=== PATIENT | male | born 1995 | race American Indian/Alaskan Native ===

== ENCOUNTER 2017-02-10 18:24 | Emergency (ER) | payer OTHER ==
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
[2017-02-11] MEDS: MOTRIN PO ONE (02:27)
[2017-02-11 02:53] VITALS: BP 149/97
== END 2017-02-11 02:30 | disposition home or self-care (01) ==
LOC: ED 18:24
DX: M54.2 Cervicalgia (principal); Z87.891 Personal history of nicotine dependence; V49.49XA Driver injured in collision with other motor vehicles in traffic accident, initial encounter; Y93.9 Activity, unspecified; Y92.9 Unspecified place or not applicable; Y99.9 Unspecified external cause status
CPT/HCPCS: 99282

== ENCOUNTER 2018-05-11 13:05 | Emergency (ER) | payer OTHER ==
--- NOTE | 2018-05-11 14:19 | Emergency Department Report ---
ED ENT HPI - General Chief complaint: Sore Throat Stated complaint: TOOTH/THROAT SWOLLEN Time Seen by Provider: 05/11/18 14:15 Source: patient Mode of arrival: Ambulatory Limitations: No Limitations - History of Present Illness MD complaint: tooth pain -: Last night Severity: moderate Quality: sharp Context- Dental: history of dental caries - Related Data Previous Rx's Medication Instructions Recorded Last Taken Type Naproxen [Naprosyn] 500 mg PO BID #30 tablet 02/11/17 Unknown Rx methOCARBAMOL [Robaxin TAB] 500 mg PO BID #30 tab 02/11/17 Unknown Rx Allergies Allergy/AdvReac Type Severity Reaction Status Date / Time No Known Allergies Allergy Unverified 02/10/17 20:36 ED Dental HPI - General Chief complaint: Sore Throat Stated complaint: TOOTH/THROAT SWOLLEN Time Seen by Provider: 05/11/18 14:15 Source: patient Mode of arrival: Ambulatory Limitations: No Limitations - Related Data Previous Rx's Medication Instructions Recorded Last Taken Type Naproxen [Naprosyn] 500 mg PO BID #30 tablet 02/11/17 Unknown Rx methOCARBAMOL [Robaxin TAB] 500 mg PO BID #30 tab 02/11/17 Unknown Rx Allergies Allergy/AdvReac Type Severity Reaction Status Date / Time No Known Allergies Allergy Unverified 02/10/17 20:36 ED Review of Systems ROS: Stated complaint: TOOTH/THROAT SWOLLEN Other details as noted in HPI Comment: All other systems reviewed and negative Constitutional: denies: chills, fever Cardiovascular: denies: chest pain, palpitations Gastrointestinal: denies: abdominal pain, nausea ED Past Medical Hx - Past Medical History Additional medical history: ADHD - Surgical History Additional Surgical History: Right hand SX - Social History Smoking Status: Never Smoker Substance Use Type: None - Medications Home Medications: Home Medications Medication Instructions Recorded Confirmed Last Taken Type Naproxen [Naprosyn] 500 mg PO BID #30 tablet 02/11/17 Unknown Rx methOCARBAMOL [Robaxin TAB] 500 mg PO BID #30 tab 02/11/17 Unknown Rx ED Physical Exam - General Limitations: No Limitations General appearance: alert, in no apparent distress - Head Head exam: Present: atraumatic, normocephalic, normal inspection - ENT ENT exam: Present: other (dental caries) - Neck Neck exam: Present: normal inspection, full ROM. Absent: tenderness, meningismus - Respiratory Respiratory exam: Present: normal lung sounds bilaterally - Cardiovascular Cardiovascular Exam: Present: regular rate, normal rhythm, normal heart sounds - GI/Abdominal GI/Abdominal exam: Present: soft. Absent: distended, tenderness, guarding, rebound, rigid ED Course Vital Signs 05/11/18 13:26 Temperature 98.5 F Pulse Rate 105 H Respiratory 16 Rate Blood Pressure 151/96 O2 Sat by Pulse 97 Oximetry Critical care attestation.: If time is entered above; I have spent that time in minutes in the direct care of this critically ill patient, excluding procedure time. ED Disposition Clinical Impression: Dental caries Disposition: DC-01 TO HOME OR SELFCARE Is pt being admited?: No Condition: Stable Instructions: Dental Caries (ED) Referrals: PRIMARY CARE, [Primary Care Provider] - 3-5 Days
[2018-05-11 14:28] VITALS: BP 122/72
== END 2018-05-11 14:26 | disposition home or self-care (01) ==
LOC: ED 13:05
DX: K02.9 Dental caries, unspecified (principal)
CPT/HCPCS: 99282

== ENCOUNTER 2018-12-11 14:40 | Emergency (ER) | payer OTHER ==
[2018-12-11 15:17] VITALS: BP 166/104
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
[2018-12-11] MEDS ORDERED: IBUPROFEN PO ONE (15:23)
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
== END 2018-12-11 17:05 | disposition home or self-care (01) ==
LOC: ED 14:40
DX: S02.5XXA Fracture of tooth (traumatic), initial encounter for closed fracture (principal); S73.102A Unspecified sprain of left hip, initial encounter; F90.9 Attention-deficit hyperactivity disorder, unspecified type; V49.9XXA Car occupant (driver) (passenger) injured in unspecified traffic accident, initial encounter; Y93.89 Activity, other specified; Y99.8 Other external cause status; Y92.410 Unspecified street and highway as the place of occurrence of the external cause
CPT/HCPCS: 70450; 72100; 72125

== ENCOUNTER 2019-07-21 04:34 | Emergency (ER) | payer SELFPAY ==
[2019-07-21 04:44] VITALS: BP 162/98
--- NOTE | 2019-07-21 05:04 | Emergency Department Report ---
ED General Adult HPI - General Chief complaint: Eye Problems Stated complaint: BILATERAL EYE IRRITATION Source: patient Mode of arrival: Ambulatory Limitations: No Limitations - History of Present Illness Initial comments: Patient is a 24-year-old -[place] male with no past medical history presents to the ED with complaint of acute onset persistent itchy erythematous bilateral conjunctiva with severe eye pain for the last 4 days with matting and purulent discharge. Patient denies vision loss, dizziness, nausea, vomiting, nasal and sinus congestion, traumatic injury or hearing loss. MD Complaint: Bilateral eye pain -: Sudden, days(s) (4) Location: eyes Radiation: non-radiation Severity scale (0 -10): 5 Quality: burning, aching Consistency: constant Improves with: none Worsens with: none Associated Symptoms: denies other symptoms. denies: confusion, chest pain, cough, diaphoresis, fever/chills, headaches, loss of appetite, malaise, nausea/vomiting, rash, shortness of breath, syncope, weakness Treatments Prior to Arrival: none - Related Data Previous Rx's Medication Instructions Recorded Last Taken Type Naproxen [Naprosyn] 500 mg PO BID #30 tablet 02/11/17 Unknown Rx methOCARBAMOL [Robaxin TAB] 500 mg PO BID #30 tab 02/11/17 Unknown Rx Amoxicillin [Amoxicillin TAB] 875 mg PO BID #14 tablet 05/11/18 Unknown Rx Ondansetron [Zofran Odt] 4 mg PO Q8HR PRN #14 tab.rapdis 05/11/18 Unknown Rx traMADol [Ultram] 50 mg PO Q6HR PRN #14 tablet 05/11/18 Unknown Rx Cyclobenzaprine [Flexeril] 10 mg PO TID PRN #20 tablet 12/11/18 Unknown Rx HYDROcodone/APAP 5-325 [[place] 1 each PO Q6HR PRN #10 tablet 12/11/18 Unknown Rx 5/325] Ibuprofen 400 mg PO QID 4 Days #16 tablet 12/11/18 Unknown Rx Gentamicin 0.3% Ophth Soln 1 drops OP Q4H #5 ml 07/21/19 Unknown Rx Ibuprofen [Motrin] 800 mg PO Q8HR PRN #20 tablet 07/21/19 Unknown Rx Allergies Allergy/AdvReac Type Severity Reaction Status Date / Time No Known Allergies Allergy Unverified 02/10/17 20:36 ED Review of Systems ROS: Stated complaint: BILATERAL EYE IRRITATION Other details as noted in HPI Constitutional: denies: chills, fever Eyes: eye pain, eye discharge, other (erythematous bilateral conjunctiva with purulent discharge and matting). denies: vision change ENT: denies: ear pain, throat pain, dental pain, hearing loss, epistaxis, congestion Respiratory: denies: cough, shortness of breath, wheezing Cardiovascular: denies: chest pain, palpitations, dyspnea on exertion, syncope, paroxysmal nocturnal dyspnea Endocrine: no symptoms reported Gastrointestinal: denies: abdominal pain, nausea, diarrhea Genitourinary: denies: urgency, dysuria Musculoskeletal: denies: back pain, joint swelling, arthralgia Skin: denies: rash, lesions Neurological: denies: headache, weakness, paresthesias Psychiatric: denies: anxiety, depression Hematological/Lymphatic: denies: easy bleeding, easy bruising ED Past Medical Hx - Past Medical History Previous Medical History?: Yes Additional medical history: ADHD - Surgical History Past Surgical History?: Yes Additional Surgical History: Right hand SX - Social History Smoking Status: Never Smoker Substance Use Type: None - Medications Home Medications: Home Medications Medication Instructions Recorded Confirmed Last Taken Type Naproxen [Naprosyn] 500 mg PO BID #30 tablet 02/11/17 Unknown Rx methOCARBAMOL [Robaxin TAB] 500 mg PO BID #30 tab 02/11/17 Unknown Rx Amoxicillin [Amoxicillin TAB] 875 mg PO BID #14 tablet 05/11/18 Unknown Rx Ondansetron [Zofran Odt] 4 mg PO Q8HR PRN #14 tab.rapdis 05/11/18 Unknown Rx traMADol [Ultram] 50 mg PO Q6HR PRN #14 tablet 05/11/18 Unknown Rx Cyclobenzaprine [Flexeril] 10 mg PO TID PRN #20 tablet 12/11/18 Unknown Rx HYDROcodone/APAP 5-325 [[place] 1 each PO Q6HR PRN #10 tablet 12/11/18 Unknown Rx 5/325] Ibuprofen 400 mg PO QID 4 Days #16 tablet 12/11/18 Unknown Rx Gentamicin 0.3% Ophth Soln 1 drops OP Q4H #5 ml 07/21/19 Unknown Rx Ibuprofen [Motrin] 800 mg PO Q8HR PRN #20 tablet 07/21/19 Unknown Rx ED Physical Exam - General Limitations: No Limitations General appearance: alert, in no apparent distress - Head Head exam: Present: atraumatic, normocephalic, normal inspection - Eye Eye exam: Present: PERRL, EOMI, other (bilateral erythematous conjunctiva with yellowish brown discharge and matting). Absent: scleral icterus, conjunctival injection, nystagmus Pupils: Present: normal accommodation - ENT ENT exam: Present: normal exam, normal orophraynx, mucous membranes moist, TM's normal bilaterally, normal external ear exam - Neck Neck exam: Present: normal inspection, full ROM - Respiratory Respiratory exam: Present: normal lung sounds bilaterally. Absent: respiratory distress, wheezes, rales, rhonchi, stridor, chest wall tenderness, accessory muscle use, prolonged expiratory - Cardiovascular Cardiovascular Exam: Present: normal rhythm, tachycardia, normal heart sounds. Absent: systolic murmur, diastolic murmur, rubs, gallop - GI/Abdominal GI/Abdominal exam: Present: soft, normal bowel sounds. Absent: tenderness, guarding, rebound, hyperactive bowel sounds, hypoactive bowel sounds, organomegaly - Rectal Rectal exam: Present: deferred - Extremities Exam Extremities exam: Present: normal inspection, full ROM, normal capillary refill - Back Exam Back exam: Present: normal inspection, full ROM. Absent: tenderness, CVA tenderness (R), CVA tenderness (L), muscle spasm, paraspinal tenderness, vertebral tenderness - Neurological Exam Neurological exam: Present: alert, oriented X3, CN II-XII intact, normal gait, reflexes normal - Psychiatric Psychiatric exam: Present: normal affect, normal mood - Skin Skin exam: Present: warm, dry, intact, normal color. Absent: rash ED Course Vital Signs 07/21/19 04:40 Temperature 98.6 F Pulse Rate 106 H Respiratory 18 Rate Blood Pressure 162/98 O2 Sat by Pulse 99 Oximetry - Reevaluation(s) Reevaluation #1: 07/21/19 05:02 This is a 24-year-old male who presented to the ED with erythematous bilateral conjunctiva with purulent discharge and vomiting for 4 days. In the ED, patient is alert and oriented 3 and is not in distress but tachycardic in triage. Patient's vital signs were rechecked and the heart rate improved and normalized. Patient was discharged home on medication based on the clinical findings of bilateral conjunctival erythema and purulent discharge which is consistent with acute bacterial conjunctivitis. Patient was advised to follow-up with his primary care physician in 7-10 days for reevaluation or return to the ED immediately if symptoms get worse. Patient was also advised to maintain a high degree of hygiene at home or at work to prevent transmission to other people at home or at work. ED Medical Decision Making - Medical Decision Making This is a 24-year-old male who presented to the ED with erythematous bilateral conjunctiva with purulent discharge and vomiting for 4 days. In the ED, patient is alert and oriented 3 and is not in distress but tachycardic in triage. Patient's vital signs were rechecked and the heart rate improved and normalized. Patient was discharged home on medication based on the clinical findings of bilateral conjunctival erythema and purulent discharge which is consistent with acute bacterial conjunctivitis. Patient was advised to follow-up with his primary care physician in 7-10 days for reevaluation or return to the ED imme diately if symptoms get worse. Patient was also advised to maintain a high degree of hygiene at home or at work to prevent transmission to other people at home or at work. - Differential Diagnosis Acute conjunctivitis; Bilateral eye pain Critical care attestation.: If time is entered above; I have spent that time in minutes in the direct care of this critically ill patient, excluding procedure time. ED Disposition Clinical Impression: Acute bacterial conjunctivitis of both eyes Disposition: DC-01 TO HOME OR SELFCARE Is pt being admited?: No Does the pt Need Aspirin: No Condition: Stable Instructions: Conjunctivitis (ED) Additional Instructions: Take medications for pain, apply day antibiotic eye drop as advised, follow up with your primary care physician in 7-10 days for reevaluation or return to the ED immediately if symptoms get worse. Prescriptions: Gentamicin 0.3% Ophth Soln 1 drops OP Q4H #5 ml Ibuprofen [Motrin] 800 mg PO Q8HR PRN #20 tablet PRN Reason: Pain , Severe (7-10) Referrals: PRIMARY CARE, [Primary Care Provider] - 3-5 Days Forms: Work/School Release Form(ED) Time of Disposition: 05:06 Print Language: URDU
== END 2019-07-21 05:24 | disposition home or self-care (01) ==
LOC: ED 04:34
DX: H10.33 Unspecified acute conjunctivitis, bilateral (principal); F90.9 Attention-deficit hyperactivity disorder, unspecified type; Z79.899 Other long term (current) drug therapy; Z98.890 Other specified postprocedural states